=== PATIENT | male | born 1990 | race African-American/Black ===

== ENCOUNTER 2022-04-03 00:38 | Emergency (ER) | payer BC ==
[~2022-04-03] VITALS: Ht 193 cm; Wt 102.1 kg
--- NOTE | 2022-04-03 00:45 | NUR ---
DR. DENNISON AT BEDSIDE, MSE IN PROGRESS.
[2022-04-03] MEDS ORDERED: LORAZEPAM 2 MG/1 ML VIAL ONE (00:54)
[2022-04-03] MEDS ORDERED: IV NORMAL SALINE 1000 ML BAG IV ONE (01:00)
[2022-04-03] MEDS ORDERED: LORAZEPAM 2 MG/1 ML VIAL IM ONE (01:00)
--- NOTE | 2022-04-03 01:02 | NUR ---
XRAY AT BEDSIDE.
[2022-04-03 01:53] LABS: CARBON DIOXIDE 26 mmol/L (21-32); CHLORIDE 103 mmol/L (98-107); CREATININE 1.1 mg/dL (0.6-1.3); GLUCOSE 102 mg/dL (74-106); HEMATOCRIT 43.5 % (36.7-47.1); MEAN CORPUSCULAR HEMOGLOBIN 29.8 uug (23.8-33.4); MEAN CORPUSCULAR VOLUME 87.1 fL (73.0-96.2); PLATELET COUNT (AUTO) 228 K/uL (152-348); POTASSIUM 3.4 mmol/L (3.5-5.1); UREA NITROGEN, BLOOD 22 mg/dL (7-18)
--- NOTE | 2022-04-03 02:57 | NUR ---
Pt is resting in bed eyes closed, breathing even and unlabored. VSS. Roomate at bedside.
--- NOTE | 2022-04-03 04:18 | NUR ---
Patient discharged to home in stable condition. Written and verbal after care instructions given. Patient verbalizes understanding of instructions. Stressed follow up or return to ER for worsening s/s. Steady gait, denies any n/v. No SANTORO/dizzyness. Accompanied with room mate.
[2022-04-03 04:19] VITALS: BP 129/60
== END 2022-04-03 04:21 | disposition home or self-care (01) ==
LOC: ER 00:41
DX: T65.91XA Toxic effect of unspecified substance, accidental (unintentional), initial encounter (principal); F41.9 Anxiety disorder, unspecified; Y92.89 Other specified places as the place of occurrence of the external cause; R00.0 Tachycardia, unspecified
CPT/HCPCS: 36415; 71045; 80048; 84484 ×2; 85025; 93005; 96360; 96372; 99285; J2060; J7040; A4663